=== PATIENT | female | born 1980 ===

== ENCOUNTER 2017-02-14 20:15 | Emergency (ER) | payer MEDICAID ==
[2017-02-14 20:25] VITALS: BMI 29.8
--- NOTE | 2017-02-14 21:02 | OBHP ---
Datetime: 02/14/2017 20:56 IP Adm Impression: Postterm, intrauterine ; No Active Labor IP Admit Plan: Discharge home Admit Comment, IP Provider: Audio Translation id [id number] chief complaint-contractions HPI 36 y/o at 40.2 wga with c/o contractions.denies vaginal bleeding or loss of fluid course uncomplicated PMH denies PSH dneies OBGYN HX Social hx denies tobacco,alcohol or illicit drug use Exam see exam section A/P Patient at 40.2 wga with c/o ctx.no active labor. -patient discharged home -if undelivered then return in2 days for nst and bpp -discussed kick counts Pelvic Type - PN: Adequate Extremities - PN: Normal Abdomen - PN: Normal Back - PN: Normal Lungs - PN: Normal Heart - PN: Normal Neurologic - PN: Normal General - PN: Normal Contraction Comments Provider: irregular IP Hx Assessment: The History has been Reviewed and is Current EGA AdmitDate IP: 40.2 Vital Signs Provider: Reviewed; Within Normal Limits Vital Signs Provider Details: initial bp noted to be elevated butt normal theerafter IP Chief Complaint: Uterine contractions FHR Category Provider Fetus A: Category I Dilatation, Provider: 1 Effacement, Provider: 50 Station, Provider: -3 Genitourinary Exam: Normal DTRs - PN: Normal
[2017-02-15 01:28] VITALS: BP 108/62; PULSE 77; RESP 18; TEMP 98.3
== END 2017-02-14 21:08 | disposition home or self-care (01) ==
LOC: C.EROB 20:15
DX: O47.1 False labor at or after 37 completed weeks of gestation (principal); Z3A.40 40 weeks gestation of pregnancy

== ENCOUNTER 2017-02-15 02:55 | Inpatient (IN) | payer MEDICAID ==
[2017-02-15] MEDS ORDERED: Oxytocin 10 Units/ml Inj ONE (03:19)
[2017-02-15 04:03] VITALS: BMI 31.6
[2017-02-15 04:24] LABS: HEMATOCRIT 38.5 % (34.0-47.0); MEAN CELL VOLUME 95.8 fL (81.0-99.0); MEAN CORPUSCULAR HEMOGLOBIN 32.1 pg (27.0-31.0); MEAN CORPUSCULAR HGB CONC 33.5 g/dL (33.0-37.0); MEAN PLATELET VOLUME 10.7 fL (7.2-11.7); WHITE BLOOD COUNT 16.4 K/uL (4.8-10.8)
[2017-02-15 04:36] LABS: ALKALINE PHOSPHATASE 219 U/L (38-126); ALT/SGPT 40 U/L (9-52); AST/SGOT 25 U/L (14-36); BILIRUBIN,TOTAL 0.5 mg/dL (0.2-1.3); BLOOD UREA NITROGEN 5 mg/dL (7-17); CALCIUM 8.3 mg/dl (8.6-10.4); CARBON DIOXIDE 18 mmol/L (22-30); CHLORIDE 104 mmol/L (98-107); GFR AFRICAN-AMERICAN > 60; GLUCOSE,RANDOM 108 mg/dL (65-105); POTASSIUM 3.2 mmol/L (3.6-5.2); SODIUM 135 mmol/L (132-148)
[2017-02-15] MEDS ORDERED: Oxycodone/Acetaminophen 5/325 mg Tab PO PRN ×2 (06:23)
--- NOTE | 2017-02-15 06:32 | OBADHP ---
Datetime: 02/15/2017 06:29 Admit Comment, IP Provider: late entry for patient seen at 3.06 am chief complaint-contractions HPI 36 y/o at 40.3 wga with c/o contractions.she was seen earlier and discharge dhome.states that contractiosn became stromnger and painful course uncomplicated PMH denies PSH dneies OBGYN HX Social hx denies tobacco,alcohol or illicit drug use Exam see exam section A/P Patient at 40.3 wga in labor -prepare for delivery Pelvic Type - PN: Adequate Back - PN: Normal Lungs - PN: Normal Heart - PN: Normal Weight - Estimated: 3200 Presentation-Admit: Vertex FHR - Baseline A Provider: 140s Gestation - Est Wks by US: 40.3 IP Hx Assessment: The History has been Reviewed and is Current Vital Signs Provider: Reviewed IP Chief Complaint: Uterine contractions Dilatation, Provider: 10 Genitourinary Exam: Normal EGA AdmitDate IP: 40.3 IP Adm Impression: Postterm, intrauterine ; Active labor IP Admit Plan: Admit to unit; Initiate labor protocol Datetime: 02/14/2017 20:56 Extremities - PN: Normal Abdomen - PN: Normal Neurologic - PN: Normal General - PN: Normal Contraction Comments Provider: irregular Vital Signs Provider Details: initial bp noted to be elevated butt normal theerafter FHR Category Provider Fetus A: Category I Effacement, Provider: 50 Station, Provider: -3 DTRs - PN: Normal
--- NOTE | 2017-02-15 06:36 | OBDS ---
DELIVERY PERSONNEL Delivery Doctor: Piedad Savage MD Cabin Cleaner: Addie Walter RN MATERNAL INFORMATION Delivery Anesthesia: None Medications in Delivery: PITOCIN Estimated Blood Loss (ml): 300 Placenta Cultured: Yes Maternal Complications: None Provider Comments: patient presented to [facility] fully dilated patient fully with bag bulging arom done.meconium stained amniotic fluid noted of a female infant.body and shoulders delivered without difficulty.cord clmaped and cut.cord b lood collected,placenta spontaneousy delivered first degree erineal laceration reapired with 2-0 chromic Fundus firm patient stable LABOR SUMMARY EDC: 02/12/2017 00:00 No. Babies in Womb: 1 Attempted: No Labor Anesthesia: None LABOR INFORMATION Onset of Labor: 02/14/2017 15:00 Complete Dilatation: 02/15/2017 03:00 Oxytocin: N/A Group B Beta Strep: Negative Steroids Given: None Reason Steroids Not Administered: Not Applicable MEMBRANES Membranes Rupture Method: Artificial Rupture of Membranes: 02/15/2017 03:16 Length of Rupture (hrs): 0.02 Amniotic Fluid Color: Heavy Meconium STAGES OF LABOR Stage 1 hrs: 12 Stage 1 min: 0 Stage 2 hrs: 0 Stage 2 min: 17 Stage 3 hrs: 0 Stage 3 min: 5 Total Time in Labor hrs: 12 Total Time in Labor min: 22 VAGINAL DELIVERY Episiotomy: None Laceration Extension: First Degree Laceration Type: Perineal Laceration Repair: Yes Laceration Repair Note: first degree perineal laceration reapired with 2-0 chromic Initial Vag Sponge Count: 10 Final Vag Sponge Count: 10 Initial Vag Sharps Count: 0 Final Vag Sharps Count: 1 Sponge Count Correct: Yes; Vaginal Sweep Performed Sharps Count Correct: Yes Count Comment: CORRECT BABY A INFORMATION Infant Delivery Date/Time: 02/15/2017 03:17 Method of Delivery: Vaginal Born in Route : No : N/A Forceps: N/A Vacuum Extraction: N/A Shoulder Dystocia : No SHOULDER DYSTOCIA BABY A Delivery Date/Time: 02/15/2017 03:17 PRESENTATION/POSITION BABY A Presentation: Cephalic Cephalic Presentation: Vertex Vertex Position: Left Occipital Anterior Breech Presentation: N/A PLACENTA INFORMATION BABY A Placenta Delivery Time : 02/15/2017 03:22 Placenta Method of Delivery: Spontaneous Placenta Status: Delivered SCORES BABY A Heart Rate 1 min: >100 bpm Resp Effort 1 min: Good Cry Reflex Irritability 1 min: Cough or Sneeze or Pulls Away Muscle Tone 1 min: Active Motion Color 1 min: Body [place], Extremities Blue SCORE 1 MIN: 9 Heart Rate 5 min: >100 bpm Resp Effort 5 min: Good Cry Reflex Irritability 5 min: Cough or Sneeze or Pulls Away Muscle Tone 5 min: Active Motion Color 5 min: Body [place], Extremities Blue SCORE 5 MIN: 9 INFORMATION BABY A Gestational Age at Delivery: 40.3 Gestational Status: Term Outcome : Liveborn Condition : Stable Infant Sex: Female IDENTIFICATION/MEDS BABY A ID Band Number: [id number] ID Band Location: Left Leg; Left Arm Sensor Applied: Yes Sensor Number: [id number] Sensor Location : Cord Clamp WEIGHT/LENGTH BABY A Infant Birthweight (gms): 3245 Weight (lb): 7 Infant Weight (oz): 2 Infant Length Inches: 20.00 Infant Length cms: 50.8 CORD INFORMATION BABY A No. Cord Vessels: 3 [place]uch[place] Cord : N/A Cord Blood Taken: Yes Suction: Mouth; Nose ASSESSMENT BABY A Complications: None Physical Findings at Delivery: Within Normal Limits Respirations: Appears Normal Conditioner Tender/ALS Called : No Transferred To: Remains with Mother
[2017-02-15] MEDS: Multiple Vitamins Tab PO SCH (10:34)
[2017-02-15 15:04] LABS: RBC URINE 126 /hpf (0-3); URINE BILIRUBIN NEGATIVE (NEGATIVE); URINE BLOOD 3+ (NEGATIVE); URINE COLOR Yellow (YELLOW); URINE GLUCOSE (UA) NORMAL (Normal); URINE KETONE NEGATIVE (NEGATIVE); URINE LEUKOCYTE ESTERASE NEG Leu/uL (Negative); URINE PROTEIN NEGATIVE (NEGATIVE); URINE UROBILINOGEN NORMAL mg/dL (0.2-1.0); WBC URINE 3 /hpf (0-5)
[2017-02-16 06:25] LABS: BASO # 0.1 K/uL (0.0-0.2); BASO % 0.6 % (0.0-2.0); EOS # 0.1 K/uL (0.0-0.7); EOS % 1.4 % (0.0-4.0); HEMATOCRIT 27.1 % (34.0-47.0); LYMPH # 2.8 K/uL (1.0-4.3); LYMPH % 29.1 % (20.0-40.0); MEAN CELL VOLUME 96.2 fL (81.0-99.0); MEAN CORPUSCULAR HEMOGLOBIN 32.7 pg (27.0-31.0); MEAN PLATELET VOLUME 9.5 fL (7.2-11.7); MONO # 0.6 K/uL (0.0-0.8); MONO % 6.2 % (0.0-10.0); RED CELL DISTRIBUTION WIDTH 15.1 % (11.5-14.5); WHITE BLOOD COUNT 9.5 K/uL (4.8-10.8)
--- NOTE | 2017-02-16 08:02 | OBPPN ---
Datetime: 02/16/2017 07:57 PP Pain Prov: Within normal limits PP Nausea Prov: Denies PP Flatus Prov: Yes PP BM Prov: No PP Breasts Prov: Normal PP Heart Prov: Normal PP Lungs Prov: Normal PP Abdomen/Uterus Prov: Normal PP Lochia Prov: Normal PP Vulva/Perineum Prov: Normal PP CVA Tenderness Prov: Normal PP Extremities Prov: Normal PP C/S Incision Prov: Not Applicable PP Progress Prov: Normal PP Impression Prov: Normal progression PP Plan Prov: Continue present management PP Progress Note Prov: pt seen and examined and reports pian is controlled. pt is ambulating voiding , passign flatus, breats feedign adn deies any heavy vaginal bleeding. pt denies any lightheadnss, di zzyness, CP, OSB VSS PE: GEN NAD AAO x 3 RESP: CTAB?L CVS: RRR< +S1/S2 ABD: Soft, NT/ND, +BS< no guarding, no rebound tendneress, no rigidty FUNDUS: Firm, below level of umbiolucsl VE: minimal lochia , non foul smelling EXT: no calf, tendenrss b/l A/P s/p PPD #1 doing well -f/u am labs -regular diet -encouarge breast feedign and ambulation -cont current managnnet IP PP Procedures: None Vital Signs Provider PP: Reviewed; Within Normal Limits
[2017-02-16] MEDS: Multiple Vitamins Tab PO SCH (09:55)
--- NOTE | 2017-02-17 08:46 | OBPPN ---
Datetime: 02/17/2017 08:36 PP Pain Prov: Within normal limits PP Nausea Prov: Denies PP Flatus Prov: Yes PP BM Prov: Yes PP Breasts Prov: Normal PP Heart Prov: Normal PP Lungs Prov: Normal PP Abdomen/Uterus Prov: Normal PP Lochia Prov: Normal PP Vulva/Perineum Prov: Not Done PP CVA Tenderness Prov: Normal PP Extremities Prov: Normal PP C/S Incision Prov: Not Applicable PP Progress Prov: Normal PP Comments Phys Exam Prov: Abdomen: Obese. Soft. Non distended. Fundus firm, mobile, non tender, 18 weeks. Mild lochia rubra. Extremiites: no calf tenderness All other systems reviewed and are negative PP Impression Prov: Normal progression PP Plan Prov: Discharge PP Progress Note Prov: Patient received in bed, room 452, . Both, breast- and bottlefe eding. c/o headache - new onset this morning: denies blurred vision, spots; aggravated by light. Den ies nausea or vomiting. Voiding and ambulating without difficluty. P.E.: as above. Mildy obese in NAD. Awake, alert, oriented to time, person and place. Pleasant an d cooperative - PPD#1 H/H 9.3/27.1; Rh(+) Assessment: PPD#2, 36 y.o. P4, S/P . Afebrile, vital signs stable. New onset headache: probab le migraine, most likely tension. Mild anemia noted; asymptomatic and hemodynamically stable. Undec ided re: contraception; options discussed briefly. Patient is clinically stable. Plan: 1) discharge home 2) See full discharge instructions Vital Signs Provider PP: Reviewed; Within Normal Limits
--- NOTE | 2017-02-17 08:48 | OBDCSUM ---
Datetime: 02/17/2017 08:44 Discharged to, Provider: Home Follow up at, Provider: Clinic Disch Instr Activity: Normal activity; May be up to bathroom; May be up for meals; May Shower Disch Instr Diet: Regular Discharge Diagnosis, Provider: Term Delivered Follow up in weeks, Provider: 6 weeks Contraception discussed, Prov: Yes Disch Activity Restrictions: No sexual activity; Nothing in vagina - [place], tampons, douche Discharge Diagnosis Prov Other: Advanced maternal age Acute blood loss anemia Contraception counseling Contraception after Delivery: Undecided
[2017-02-17] MEDS: Multiple Vitamins Tab PO SCH (09:00)
[2017-02-17 20:09] VITALS: BP 101/61; PULSE 75; RESP 18; TEMP 97.5; O2SAT 98
== END 2017-02-17 14:30 | disposition home or self-care (01) | DRG 775 ==
LOC: C.EROB 02:55 → C.4D 03:00 → C.4M 05:10
PROVIDERS: ADMIT Student in an Organized Health Care Education/Training Program; ATTEND Student in an Organized Health Care Education/Training Program
PROC: 10E0XZZ Delivery of Products of Conception, External Approach (ICD-10-PCS; principal; 2017-02-15)
PROC: 10907ZC Drainage of Amniotic Fluid, Therapeutic from Products of Conception, Via Natural or Artificial Opening (ICD-10-PCS; 2017-02-15)
PROC: 0HQ9XZZ Repair Perineum Skin, External Approach (ICD-10-PCS; 2017-02-15)
DX: O48.0 Post-term pregnancy (principal); O70.0 First degree perineal laceration during delivery; Z3A.40 40 weeks gestation of pregnancy; Z37.0 Single live birth